=== PATIENT | female | born 1985 | race Caucasian/White ===

== ENCOUNTER 2021-07-12 14:48 | Outpatient (REF) | payer OTHER, SELFPAY | END 2021-07-12 14:49 | disposition home or self-care (01) | LOC: HO.LAB 14:48 | PROVIDERS: PCP Nurse Practitioner Family; Visit Provider Internal Medicine | DX: Z20.822 Contact with and (suspected) exposure to COVID-19 (principal) | CPT/HCPCS: C9803; U0003; U0005 ==

== ENCOUNTER 2024-06-15 10:48 | Outpatient (AMB) | payer OTHER, SELFPAY ==
--- NOTE | 2024-06-15 10:51 | A.OFFPC_ITS ---
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 Required: No Allergies No Known Allergies Allergy (Verified 06/15/24 11:18) Medication List - Last Reconciled 06/15/24 by Nataliya Wise, ASSESSMENT COORDINATOR- levonorgestrel (Liletta) intrauterine Tobacco use date assessed: 06/15/24 Dental Screening Dental Screen Date: 06/15/24 Did you have a dental visit in the last 12 months?: Yes Did you have a dental problem in the last 6 months where you did not have access to dental care?: No Was dental information given to patient?: Patient has dentist HPI HPI Comments History of Present Illness Details 38 y/o F with no significant medical his tory, family hx of colon ca Social: dtr 6, son 4, , 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 No family hx of skin cancer Here today to [facility] & for complete physical exam. 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 She also reports that she has been very healthy overall. Optho no glasses Skin- no issues Due for pap, has IUD, due to be changed 2015 The only complaint is that of shooting pain on the left side of her hip and leg that started about 3-4 months ago. It was intermittent in nature. It was te nder to the touch at times. The pain stops above the level of the knee and only occurs on the lateral aspect. She has no new injury. She does report a history of surgery 10 years ago to repair a torn labrum. She takes Tylenol and Advil which helps. Plan Flu vaccine administered today Routine screening labs today Mildly tachycardic. Advised to monitor heart rate at home. If consistently abo ve 100, advised to let me know so that I can further investigate. However exam today was benign and reassuring. We will schedule for her to have a clinical breast exam and Pap smear here in the office In regards to the left hip, advised to follow up with the surgeon for further evaluation and treatment. Otherwise return to office in 1 year for complete physical exam, sooner as needed [facility] Medical History (Updated 06/15/24 @ 11:46 by Nataliya Wise, [facility]) No pertinent past medical history Surgical History (Updated 06/15/24 @ 11:41 by Luz Maria Licona MA) History of hip surgery Previous section Family History (Updated 06/15/24 @ 11:41 by Luz Maria Licona MA) Maternal Grandfather Colon cancer Social History (Updated 06/15/24 @ 10:58 by Luz Maria Licona MA) Household Members: Spouse and Children Both parents involved: No Caregiver staying overnight: Yes Housing: House Are you a primary director of managed care to a significant other at home: Yes Do you presently have visiting nurse or other home services: No 75 years or older and lives alone: No Alcohol intake: current Alcohol intake frequency: a few times a month Patient Tobacco Use Status: Never used Tobacco e-Cigarette/Vaping Use: Never Used Second Hand Smoke Exposure: No service: No Current occupational status: employed 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 1. Little interest or pleasure in doing things: not at all 2. Feeling down, depressed, or hopeless: not at all 3. Trouble falling or staying asleep, or sleeping too much: not at all 4. Feeling tired or having little energy: not at all 5. Poor appetite or overeating: not at all 6. Feeling bad about yourself - or that you are a failure or have let yourself or your family down: not at all 7. Trouble concentrating on things, such as reading the newspaper or watching television: not at all 8. Moving or speaking so slowly that other people could have noticed. Or the opposite - being so fidgety or restless that you have been moving around a lot more than usual: not at all 9. Thoughts that you would be better off or of hurting yourself in some way: not at all Total score: 0 Depression Screening Interpretation: Negative Depression Screening Done: Yes 76508 - PHQ-9 Billing: Yes Source: Developed by Drs. Bryce Baxter, Angelita Castellon, Augusto Ramirez and colleagues, with an educational qiana from [employer]. Thrive Questionnaire Date Thrive assessed: 06/15/24 I am a: Patient What is your living situation today?: I have a steady place to live Within the past 12 months, did the food you bought not last and you didn't have the money to get more?: Never true Within the past 12 months, did you worry whether your food would run out before you got money to buy more?: Never true Do you have trouble paying for medicines?: No Do you have trouble getting transportation to medical appointments?: No Do you have trouble paying your heating and electricity bill?: No Do you have trouble taking care of your child, family member or friend?: No Do you have trouble with day-to-day activities such as bathing, preparing meals, shopping, managing finances, etc.?: No Are you currently unemployed and looking for a job?: No Are you interested in more education?: No Please select the resources that you would like help with: None Currently or been in a relationship where the following occur: No concerns reported THRIVE Score: 0 AUDIT C Alcohol Use Questionnaire (AUDIT-C) 1. How often do you have a drink containing alcohol?: 2-4 times a month 2. How many drinks containing alcohol do you have on a typical day when you are drinking?: 1 or 2 3. How often do you have six or more drinks on one occasion?: Never Total Score: 2 Score Reviewed/Action Taken: Yes NADEEN-7 AMB Questionnaire NADEEN-7 Date NADEEN - 7 assessed: 06/15/24 Feeling nervous, anxious, or on edge: 0 = Not at all Not being able to stop or control worryin = Not at all Worrying too much about different things: 0 = Not at all Trouble relaxin = Not at all Being so restless that it is hard to sit still: 0 = Not at all Becoming easily annoyed or irritable: 0 = Not at all Feeling afraid as if something awful might happen: 0 = Not at all Total NADEEN-7 score (0-4 normal; 5-9 mild; 10-14 moderate; 15-21 severe): 0 Source: Developed by Drs. Bryce Baxter, Angelita Castellon, Augusto Ramirez and colleagues, with an educational qiana from [employer]. NADEEN-7 Assessment Billing NADEEN-7 Assessment Tool: NADEEN-7 Assessment 62567 Review of Systems Const Details: Constitutional: Denies fever. Skin: Denies rash. Eye: Denies eye pain. ENMT: Denies sore throat and nasal congestion. Respiratory: Denies shortness of breath and cough. Gastrointestinal: Denies nausea, vomiting or abdominal pain. Cardiovascular: Denies chest pain and syncope. Genitourinary: Denies dysuria. Musculoskeletal: Denies back pain Neurologic: Denies headaches, confusion, and weakness. Psychiatric: Denies suicidal thoughts and substance abuse. Allergy/ Immunologic: Denies impaired immunity. Physical exam (Primary Care) Vital Signs: Last Vital Signs Pulse 99 06/15/24 11:47 Resp 13 06/15/24 10:56 BP 128/72 06/15/24 10:56 Pulse Ox 98 06/15/24 10:56 Oxygen Delivery Method Room Air 06/15/24 10:56 BMI result Body Mass Index 27.7 Tobacco/Smoking Status: Tobacco use Status Tobacco use date assessed 06/15/24 06/15/24 10:59 Patient Tobacco Use Status Never used Tobacco 06/15/24 10:59 e-Cigarette/Vaping Use Never Used 06/15/24 10:59 PHQ-9: PHQ-9 Score PHQ-9: Total score 0 06/15/24 11:25 Depression Screening Interpretation: Negative Thrive Assessment: Date of Thrive Assessment Date Thrive assessed 06/15/24 06/15/24 10:59 Currently or been in a relationship where the following occur: No concerns reported Const Other: General: Well developed, well nourished, in no acute distress. Appears stated age. Head: Normocephalic, atraumatic. Eyes: Pupils are equal, round and reactive to light and accommodation. Conjunctivae are clear. Vision grossly normal. Ears: TMs clear AU, EACS WNL Nose: Patent, without discharge. Mouth: There are no ulcers or lesions noted. No inflammation, no post nasal drip, no plaques nor exudates. Neck: Supple, no adenopathy or thyromegaly. Lungs: Clear to auscultation bilaterally. No rales, rhonchi or wheeze noted. Good air flow in all dean. Heart: Regular rate and rhythm. No murmurs, click, rubs or gallops are noted. Abdomen: Bowel sounds present in all quadrants. The abdomen is soft, nontender, with no masses or organomegaly noted. No hernias are noted. Musculoskeletal: Joints are nontender, without swelling, redness, or effusions. Range of motion is observed to be normal. Unable to replicate the pain in her left hip today. Overall exam of the hip and leg grossly normal. Pulses: Peripheral pulses are equal and palpable bilaterally. Extremities: No clubbing, cyanosis nor edema is noted. Neurologic: Gait and station normal. Cranial Nerves 2-12 intact. Motor strength grossly symmetrical and intact. No sensory loss. Balance normal. Skin: No rashes, ulcers, or lesions noted. Turgor is good. Skin color is good. Hair and nails are without abnormalities. Psych: Normal eye contact, affect and mood appropriate, and normal inter actions. Patient is alert and appropriate to context. Office Procedures Flu Questionnaire Does the patient have a severe egg allergy?: No Does the patient have severe life threatening allergies?: No Does the patient have a fever or illness today?: No Has the patient ever had Guillain-Gibsonburg Syndrome?: No Has the patient ever had any past reaction to a flu shot?: No Immunizations Fluarix Triv [id number] (PF) 45 mcg (15 mcg x 3)/0.5 mL IM syringe Performing Provider: ANCA Jimenez Performing Location: [facility] Administered by: Melisa Moon RN on 06/15/24 11:10 Dose Route Admin Location Dispensed Lot Number Expiration Date [facility] Fertilizer Applicator 0.5 mL IM Left Deltoid 0.5 mL [id number] 02/06/25 [id number] [employer] VIS Given Date VIS Provided VIS Publication Date 06/15/24 Single Vaccine 21 Eligibility Eligibility Date Funding Source Not [facility] Eligible 06/15/24 Private Coding Level of Care Code New Pt Prev Care 18-39yr(10768 Diagnoses Encounter for general adult medical examination without abnormal findings Z00.00 Laboratory exam ordered as part of routine general medical examination Z00.00 Left hip pain M25.552 Family history of colon cancer Z80.0 Additional Codes NADEEN-7 Assessment Billing - NADEEN-7 Assessment Tool: NADEEN-7 Assessment 33007 ([id number]) PHQ-9 - 72947 - PHQ-9 Billing: Yes ([id number]) Assessment & Plan Assessment & Plan (1) Encounter for general adult medical examination without abnormal findings: Code(s): Z00.00 - Encounter for general adult medical examination without abnormal findings Plan: . (2) Laboratory exam ordered as part of routine general medical examination: Code(s): Z00.00 - Encounter for general adult medical examination without abnormal findings Category: Medical Plan: . (3) Left hip pain: Code(s): M25.552 - Pain in left hip Category: Medical Plan: .. (4) Family history of colon cancer: Comment: maternal grandfather age > 50 Code(s): Z80.0 - Family history of malignant neoplasm of digestive organs Category: Medical Plan: . Orders: Orders Influenza [id number] Immunization 06/15/24 Z23 - Encounter for immunization Comprehensive Met. Panel 06/15/24 Z. - Encounter for general adult medical examination without abnormal findings Hemoglobin A1c 06/15/24 Z00.00 - Encounter for general adult medical examination without abnormal findings Lipid Panel 06/15/24 Z. - Encounter for general adult medical examination w ithout abnormal findings Microalbumin, Random (w Creat) 06/15/24 Z00.00 - Encounter for general adult medical examination without abnormal findings TSH reflex Free T4 06/15/24 Z00.00 - Encounter for general adult medical examination without abnormal findings Patient Instructions: Health screenings for women You should visit your health care provider from time to time, even if you are healthy. The purpose of these visits is to: Screen for medical issues Assess your risk for future medical problems Encourage a healthy lifestyle Update vaccinations and other preventive care services Help you get to know your provider in case of an illness Information Even if you feel fine, you should still see your provider for regular checkups. These visits can help you avoid problems in the future. For example, the only way to find out if you have high blood pressure is to have it checked regularly. High blood sugar and high cholesterol levels also may not have any symptoms in the early stages. A simple blood test can check for these conditions. There are specific times when you should see your provider or receive specific health screenings. The [place] Preventive Services Task Force publishes a list of recommended screenings. Below are screening guidelines for women ages 18 to 39. BLOOD PRESSURE SCREENING Your blood pressure should be checked at least once every 3 to 5 years if: Your blood pressure is in the normal range (top number less than 120 mm Hg and bottom number less than 80 mm Hg) You don't have risk factors for high blood pressure Ask your provider if you need your blood pressure checked more often if: The top number is 120 to 129 mm Hg or the bottom number is 70 to 79 mm Hg You have diabetes, heart disease, kidney problems, are overweight, or have certain other health conditions You have a first-degree relative with high blood pressure You are Black You had high blood pressure during a If the top number is 130 mm Hg or greater or the bottom number is 80 mm Hg or greater, this is considered stage 1 hypertension. Schedule an appointment with your provider to learn how you can reduce your blood pressure. Watch for blood pressure screenings in your area. Ask your provider if you can stop in to have your blood pressure checked. BREAST CANCER SCREENING Experts do not agree about the benefits of breast self-exams in finding breast cancer or saving lives. Talk to your provider about what is best for you. A screening mammogram is not recommended for most women under age 40. Your provider may discuss and recommend mammograms, MRI scans, or ultrasounds if you have an increased risk for breast cancer, such as: A mother or sister who had breast cancer at a young age (most often starting screening earlier than the age the close relative was diagnosed) You carry a high-risk genetic marker CERVICAL CANCER SCREENING Cervical cancer screening should start at age 21 years unless your provider advises otherwise. After the first test: Women ages 21 through 29 should have a Pap test every 3 years. Exoprts do not agree on whether HPV testing is recommended for this age group. Women ages 30 through 65 should be screened with either a Pap test every 3 years or the HPV test every 5 years or both tests every 5 years (called cotesting ). Women who have been treated for precancer (cervical dysplasia) should continue to have Pap tests for 20 years after treatment or until age 65, whichever is longer. If you have had your uterus and cervix removed (total hysterectomy), and you have not been diagnosed with cervical cancer or precancer (high grade cervical neoplasia), you do not need cervical cancer screening. CHOLESTEROL SCREENING Cholesterol screening should begin at: Age 45 for women with no known risk factors for coronary heart disease Age 20 for women with known risk factors for coronary heart disease Repeat cholesterol screening should take place: Every 5 years for women with normal cholesterol levels More often if changes occur in lifestyle (including weight gain and diet) More often if you have diabetes, heart disease, kidney problems, or certain other conditions DIABETES SCREENING You should be screened for diabetes starting at age 35 and then repeated every 3 years if you have no risk factors for diabetes. Screening may need to start earlier and be repeated more often if you have other risk factors for diabetes, such as: You have a first degree relative with diabetes. You are overweight or have obesity. You have high blood pressure, prediabetes, or a history of heart disease. Screening for diabetes should be done if you are planning to become and you are overweight and have other risk factors such as high blood pressure. DENTAL EXAM Go to the dentist once or twice every year for an exam and cleaning. Your dentist will evaluate if you need more frequent visits. EYE EXAM Have an eye exam every 5 to 10 years before age 40. If you have vision problems, have an eye exam every 2 years or more often if recommended by your provider. You should have an eye exam that includes an examination of your retina (back of your eye) at least every year if you have diabetes. IMMUNIZATIONS Commonly needed vaccines include: Flu shot: get one every year. COVID-19 vaccine: ask your provider what is best for you. Tetanus-diphtheria and acellular pertussis (Tdap) vaccine: have one at or after age 19 as one of your tetanus-diphtheria vaccines if you did not receive it as an adolescent. Tetanus-diphtheria: have a booster (or Tdap) every 10 years. Varicella vaccine: receive 2 doses if you never had chickenpox or the varicella vaccine. Hepatitis B vaccine: receive 2, 3, or 4 doses, depending on your exact circumstances. Measles, mumps, and rubella (MMR) vaccine: receive 1 to 2 doses if you are not already immune to MMR. Your provider can tell you if you are immune. Ask your provider about the human papillomavirus (HPV) vaccine if: You have not received the HPV vaccine in the past You have not completed the full vaccine series (you should catch up on this shot) Ask your provider if you should receive other immunizations if you have certain health problems that increase your risk for some diseases such as pneumonia. INFECTIOUS DISEASE SCREENING Women who are sexually active should be screened for chlamydia and gonorrhea up until age 25. Women 25 years and older should be screened for chlamydia and gonorrhea if at high risk. Screening for hepatitis C: All adults ages 18 to 79 should get a one-time test for hepatitis C. people should be screened at every . Screening for human immunodeficiency virus (HIV): All people ages 15 to 65 should get a one-time test for HIV. Depending on your lifestyle and medical history, you may also need to be screened for infections such as syphilis and HIV, as well as other infections. PHYSICAL EXAM All adults should visit their provider from time to time, even if they are healthy. The purpose of these visits is to: Screen for disease Assess your risk of future medical problems Encourage a healthy lifestyle Update your vaccinations and other preventive care services Maintain a relationship with a provider in case of an illness Your height, weight, and BMI should be checked at every exam. During your exam, your provider may ask you about: Depression and anxiety Diet and exercise Alcohol and tobacco use Safety issues, such as using seat belts, smoke detectors, and intimate partner violence Your medicines and risk for interactions SKIN SELF-EXAM Your provider may check your skin for signs of skin cancer, especially if you're at high risk, such as if you: Have had skin cancer before Have close relatives with skin cancer Have a weakened immune system OTHER SCREENING Talk with your provider about colon cancer screening if you have a strong family history of colon cancer or polyps, or if you have had inflammatory bowel disease or polyps yourself. Routine bone density screening of women under 40 is not recommended. Walk-In Care (Urgent Care): We Make it Easy Walk-in for urgent medical issues such as: ? Seasonal Allergies ? Insect Bites ? Cough ? Diarrhea ? Acute Asthma Attacks ? Back, Knee or Joint Pain ? Ear Infection ? Fever without a Rash ? Headaches ? Nausea ? Gwynn Eye, Rash or Skin Irritation ? Sore Throat ? Sports Physicals ? Vomiting Most insurances are accepted. Patients do not need to be part of the [facility] to seek care at the walk-in clinic. Locations [address] [facility] , [place] [address] ? [phone] [facility] Walk-In Care in [place] provides services to ages 18 and over. Open Thursday-Thursday: 8 a.m. to 5 p.m. and Thursday: 9 a.m. to 3 p.m.* *Hours may vary due to staffing availability. To confirm Walk-In Care hours in [place], please call [phone]. [address] [place] [address] ? [phone] [facility] Walk-In Care in [place] provides services to ages 12 and over. Open Thursday-Thursday: 8 a.m. to 5 p.m. Hours may vary due to staffing availability. To confirm Walk-In Care hours in [place], please call [phone]. LABORATORY SERVICES: [facility] Lab ? Primary Location [address] [place] [address] Thursday through Thursday 6:00 AM ? 5:00 PM Thursday 7:00 AM ? 11:00 AM* [phone] The [facility] Lab is centrally located near the front entrance of the [facility] for easy outpatient access. Convenient parking is provided for outpatients. *Hours may vary due to staffing availability. To confirm Laboratory hours for any location, please call [phone]. Offsite Location For your convenience, we offer offsite laboratory draw stations at the following locations: [address] [place] [address] ? [address], [address] [place] [address] Thursday through Thursday 7:30 AM ? 1:00 PM* [phone] *Hours may vary due to staffing availability. To confirm Laboratory hours for any location, please call [phone]. [place] ? [address] Thursday through Thursday 6:00 AM ? 3:30 PM* Thursday 6:30 AM ? 3 PM* [phone] *Hours may vary due to staffing availability. To confirm Laboratory hours for any location, please call [phone]. [address] [facility] Thursday through Thursday 7:30 AM ? 4:00 PM* [phone] *Hours may vary due to staffing availability. To confirm Laboratory hours for any location, please call [phone]. [address] [facility] Thursday through 9:00 AM ? 4:00 PM* *Hours may vary due to staffing availability. To confirm Laboratory hours for any location, please call [phone]. Appointments are not necessary. Walk-ins are welcome. Like all the departments throughout the [facility], our Lab undergoes frequent reviews to ensure the quality and accuracy of test results, and our staff takes special pride in its status as a nationally accredited facility. Patient Portal: ONE PATIENT. ONE RECORD. BETTER CARE. [facility] has a fully integrated, cutting- edge mobile electronic health information system that has revolutionized the way we care for our patients and manage our organization. This system improves communication and coordination enabling us to provide safe, higher-quality care, and an overall positive experience for staff and patients. Our first priority, as always, is to deliver the highest quality care possible. The system is running in the background supporting that priority. This portal is for all [facility] and [facility] services and practices. If you are experiencing any technical difficulties with enrolling or logging into the Patient Portal please complete the [facility] Patient Portal Technical Support Form. [facility] and [facility] now offers a new secure on-line interactive tool for patients to review their health information ? ?Patient Portal. This interactive web portal will enable patients and their families to take an active role in their care by providing easy, secure access to their health information via the internet. The Patient Portal provides patients with instant access to their health information, including laboratory results, medications, allergies, demographic information, visit history, and more. In addition to managing their own care, parents and health care proxies with authorized consent will appreciate the ability to access the records of those individuals for whom they provide care. Please note: if you wish to gain access (Proxy) to another patient?s portal, you will be required to come to the Medical Records Department in person at [facility]. Both the patient giving proxy access and the proxy will need to provide photo identification and complete the appropriate authorization. The Patient Portal also allows track their appointments online. The [facility] Patient Portal also saves patients time by allowing them to submit updates to their demographic and contact information prior to their visits. Portal email notifications will also alert patients to any new activity on their portal, such as test results and new appointments. In order to initially enroll in the [facility] Patient Portal, you will need to enter some required information including the following: * your [facility] Medical Record number * your personal home email address * name * date of Please note: In order to enroll in the [facility] Patient Portal, we need to have your email address on file in your electronic medical record. ?The email address needs to be specific for one person (yourself) in order for your Portal enrollment to be successful. ?You can update your email address in person with our Registration staff when you are registering for a hospital visit. ?Otherwise, you will need to come to the Health Information Management (Medical Records) Department at [facility]. ?We are open from Thursday ? Thursday from 7:30 a.m. ? 4:30 p.m. ?You will be required to present a photo id. Once you have successfully enrolled in the Patient Portal, you will receive a one-time user id and password for the Portal, sent to your email address. ?This will allow you to log into the Patient Portal within 99 hrs and reset your own logon id and password, and define personal security questions. ?Once your permanent login and password have been set, you can log into the [facility] Patient Portal at any time via the blue button above or from the Portal Logon button on any page of the [facility] website. [facility] and [facility] encourage all of our patients to enroll in Patient Portal as it presents a valuable opportunity for patients and their families to actively participate in their care and stay healthy Welcome to [facility]. ?We look forward to working with you.
[2024-06-15 10:56] VITALS: BP 128/72; PULSE 106; RESP 13; O2SAT 98; BMI 27.7
[2024-06-15 11:47] VITALS: PULSE 99
== END 2024-06-15 11:41 | disposition home or self-care (01) ==
LOC: HO.HMCFM 10:49
PROVIDERS: PCP Nurse Practitioner Family; Visit Provider Nurse Practitioner Family
DX: Z00.00 Encounter for general adult medical examination without abnormal findings (principal); M25.552 Pain in left hip; Z80.0 Family history of malignant neoplasm of digestive organs

== ENCOUNTER → 2024-06-15 10:48 | Outpatient (BNVA) | payer OTHER, SELFPAY | PROVIDERS: PCP Nurse Practitioner Family; Visit Provider Nurse Practitioner Family | DX: Z00.01 Encounter for general adult medical examination with abnormal findings (principal); Z23 Encounter for immunization; M25.552 Pain in left hip; Z80.0 Family history of malignant neoplasm of digestive organs | CPT/HCPCS: 90471; 90656; 96127 ==

== ENCOUNTER 2024-06-22 12:23 | Outpatient (REF) | payer OTHER, SELFPAY | END 2024-06-22 12:24 | disposition home or self-care (01) | LOC: HO.LNP 12:23 | PROVIDERS: PCP Nurse Practitioner Family; Visit Provider Nurse Practitioner Family | DX: Z12.4 Encounter for screening for malignant neoplasm of cervix (principal) | CPT/HCPCS: 88175 ==

== ENCOUNTER 2024-06-22 12:23 | Outpatient (AMB) | payer OTHER, SELFPAY ==
--- NOTE | 2024-06-22 12:27 | A.OFFPC_ITS ---
Vital Signs 06/22/24 12:33 Height 5 ft 8 in Weight 182 lb 2 oz BMI 27.7 BP 112/70 Blood Pressure Location Rt brachial Position Sitting Respiration 16 Pulse 89 Pulse Source Pulse Oximeter Temp 98.3 F Temp Source Oral Pulse Oximetry (%) 99 Oxygen Delivery Method Room Air Intake Visit Reasons: schedule 30 min pap/CBE Intake Note: patient her for PAP Safekeeping Clerk Required: No Is last menstrual period known: Yes Last menstrual period: 06/08/24 Post menopausal: No Patient : No Allergies No Known Allergies Allergy (Verified 06/22/24 12:41) Medication List - Last Reconciled 06/22/24 by Nataliya Wise, COLLAR BASTER- levonorgestrel (Liletta) intrauterine Tobacco use date assessed: 06/22/24 Dental Screening Dental Screen Date: 06/22/24 Did you have a dental visit in the last 12 months?: Yes Did you have a dental problem in the last 6 months where you did not have access to dental care?: No Was dental information given to patient?: Patient has dentist HPI HPI Comments History of Present Illness Details 38 y/o F with no significant medical his tory, family hx of colon ca Social: dtr 6, son 4, , 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 No family hx of skin cancer Here today for routine Pap smear and clinical breast exam Last menstrual period was 2 weeks ago Last Pap smear 4 years ago Plan Routine Pap plus HPV reflex obtained today. Future screenings based on current guidelines. Advised to do self-breast exams once per month. Education provided today. This note is constructed using voice recognition software. While every effort has been made to ensure accuracy in data analysis assistant, still errors may have been included Sometimes, these errors may affect the content or meaning of the given sentence . Total time spent caring for the patient today was 30 minutes. This includes time spent before the visit reviewing the chart, time spent during the visit, and time spent after the visit on documentation [facility] Medical History (Updated 06/22/24 @ 12:39 by ANGELICA Jimenez) No pertinent past medical history Surgical History (Updated 06/15/24 @ 11:41 by Luz Maria Licona MA) History of hip surgery Previous section Family History (Updated 06/15/24 @ 11:41 by Luz Maria Licona MA) Maternal Grandfather Colon cancer Social History (Updated 06/15/24 @ 10:58 by Luz Maria Licona MA) Household Members: Spouse and Children Both parents involved: No Caregiver staying overnight: Yes Housing: House Are you a primary campground caretaker to a significant other at home: Yes Do you presently have visiting nurse or other home services: No 75 years or older and lives alone: No Alcohol intake: current Alcohol intake frequency: a few times a month Patient Tobacco Use Status: Never used Tobacco e-Cigarette/Vaping Use: Never Used Second Hand Smoke Exposure: No Patient : No service: No Current occupational status: employed 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 Current occupational exposures/hazards: No Cognitive needs: No Hearing needs: No Vision needs: No Female Reproductive History Menstrual Date of last menstrual period: 06/08/24 Questionnaire Thrive Questionnaire Date Thrive assessed: 06/13/24 I am a: Patient What is your living situation today?: I have a steady place to live Within the past 12 months, did the food you bought not last and you didn't have the money to get more?: Never true Within the past 12 months, did you worry whether your food would run out before you got money to buy more?: Often true Do you have trouble paying for medicines?: No Do you have trouble getting transportation to medical appointments?: No Do you have trouble paying your heating and electricity bill?: No Do you have trouble taking care of your child, family member or friend?: No Do you have trouble with day-to-day activities such as bathing, preparing meals, shopping, managing finances, etc.?: No Are you currently unemployed and looking for a job?: No Are you interested in more education?: No Please select the resources that you would like help with: None Currently or been in a relationship where the following occur: No concerns reported THRIVE Score: 1 AUDIT C Alcohol Use Questionnaire (AUDIT-C) 1. How often do you have a drink containing alcohol?: 2-4 times a month 2. How many drinks containing alcohol do you have on a typical day when you are drinking?: 1 or 2 3. How often do you have six or more drinks on one occasion?: Never Total Score: 2 Score Reviewed/Action Taken: Yes NADEEN-7 AMB Questionnaire NADEEN-7 Date NADEEN - 7 assessed: 06/15/24 Source: Developed by Drs. Bryce Baxter, Angelita Castellon, Augusto Ramirez and colleagues, with an educational qiana from [employer]. Physical exam (Primary Care) Vital Signs: Last Vital Signs Temp 98.3 F 06/22/24 12:33 Pulse 89 06/22/24 12:33 Resp 16 06/22/24 12:33 BP 112/70 06/22/24 12:33 Pulse Ox 99 06/22/24 12:33 Oxygen Delivery Method Room Air 06/22/24 12:33 BMI result Body Mass Index 27.7 Tobacco/Smoking Status: Tobacco use Status Tobacco use date assessed 06/22/24 06/22/24 12:37 Patient Tobacco Use Status Never used Tobacco 06/22/24 12:29 e-Cigarette/Vaping Use Never Used 06/22/24 12:29 Thrive Assessment: Date of Thrive Assessment Date Thrive assessed 06/13/24 06/22/24 12:29 Currently or been in a relationship where the following occur: No concerns reported Chest Chest palpation & inspection: normal inspection of the chest Breast/axilla inspection: normal inspection of the breasts and normal inspection of the axillae Breast/axilla palpation: normal palpation of the breasts, normal palpation of the axillae and no axillary lymphadenopathy General: Yes Bimanual renal exam normal bilaterally, Yes bladder normal to inspection and Yes bladder normal to palpation External Female Exam: normal external appearance and normal appearance of the urethra Speculum Exam - Vagina: normal appearance of the vagina, normal palpation and normal vaginal discharge Speculum Exam - Cervix: normal appearance of the cervix, normal palpation and Cervical os open (STRINGS OF IUD PRESENT) Bimanual exam- vagina & uterus: normal bimanual exam, normal palpation, bladder normal to palpation, normal palpation and uterine mobility normal Bimanual Exam- Adnexa, other: normal adnexae, no masses and normal OB/external & speculum: external exam normal and Cervical os open (STRINGS OF IUD PRESENT) Coding Level of Care Code Est Pt Level 4 (43919) Complex EM visit Add On G2211 Diagnoses Encounter for breast self examination education Z71.89 Screening breast examination Z12.39 Screening for cervical cancer Z12.4 Assessment & Plan Assessment & Plan (1) Encounter for breast self examination education: Code(s): Z71.89 - Other specified counseling Category: Medical Plan: . (2) Screening breast examination: Code(s): Z12.39 - Encounter for other screening for malignant neoplasm of breast Category: Medical Plan: . (3) Screening for cervical cancer: Code(s): Z12.4 - Encounter for screening for malignant neoplasm of cervix Category: Medical Plan: . Plan . Orders: Orders Pap Smear Today Z12.4 - Encounter for screening for malignant neoplasm of cervix
[2024-06-22 12:33] VITALS: BP 112/70; PULSE 89; RESP 16; TEMP 36.8; O2SAT 99; BMI 27.7
== END 2024-06-22 13:05 | disposition home or self-care (01) ==
PROVIDERS: PCP Nurse Practitioner Family; Visit Provider Nurse Practitioner Family
DX: Z12.4 Encounter for screening for malignant neoplasm of cervix (principal); Z12.39 Encounter for other screening for malignant neoplasm of breast

== ENCOUNTER 2024-06-22 13:08 | Outpatient (REF) | payer OTHER, SELFPAY ==
[2024-06-22 14:38] LABS: Estimated Average Glucose 105 mg/dL; Hemoglobin A1C 118.2101 umol/L; Hemoglobin A1c % 5.3 % (<6.0)
[2024-06-22 14:55] LABS: Creatinine Urine 33.13 mg/dL; Microalbumin Urine < 5.0 mg/L
[2024-06-22 15:11] LABS: Alanine Aminotransferase 20 U/L (0-31); Alkaline Phosphatase 49 U/L (39-117); Anion Gap 10 (12-20); Aspartate Amino Transferase 19 U/L (5-31); Bilirubin Total 0.7 mg/dL (0.0-1.0); Blood Urea Nitrogen 11 mg/dL (9-16); Calcium 9.6 mg/dL (8.4-10.2); Carbon Dioxide 26 mmol/L (22-29); Chloride 106 mmol/L (96-108); Cholesterol 168 mg/dL (<200); Estimated Glomerular Filt Rate > 60; Glucose Random 83 mg/dL (60-115); HDL Cholesterol 52 mg/dL (>40); LDL Cholesterol Calculated 102 mg/dL (<100); Potassium 3.3 mmol/L (3.3-5.1); Sodium 139 mmol/L (135-145); Total Protein 7.1 g/dL (6.5-8.0); Triglycerides 74 mg/dL (<150)
== END 2024-06-22 13:09 | disposition home or self-care (01) ==
LOC: HO.WFDLDS 13:08
PROVIDERS: Visit Provider Nurse Practitioner Family
DX: Z00.00 Encounter for general adult medical examination without abnormal findings (principal); Z13.1 Encounter for screening for diabetes mellitus
CPT/HCPCS: 36415; 80053; 80061; 82570; 83036; 84443

== ENCOUNTER 2025-06-22 11:54 | Outpatient (AMB) | payer OTHER, SELFPAY ==
--- NOTE | 2025-06-22 11:56 | A.OFFPC_ITS ---
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 Required: No Allergies No Known Allergies Allergy (Verified 06/22/25 11:56) Medication List - Last Reconciled 06/22/25 by VIVIANA Jimenez- levonorgestrel (Liletta) intrauterine Tobacco use date assessed: 06/22/25 Dental Screening Dental Screen Date: 06/22/25 Did you have a dental visit in the last 12 months?: Yes Did you have a dental problem in the last 6 months where you did not have access to dental care?: No Was dental information given to patient?: Patient has dentist HPI HPI Comments History of Present Illness Details 39 y/o F with no significant medical his tory, family hx of colon ca Social: 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 No family hx of skin cancer History of Present Illness The patient is a 39-year-old female presenting for a complete physical exam. Left hip pain: - The patient reports persistent, non-de bilitating left hip pain following a surgery on the same hip years ago. - She states the hip is not 100% recover ed but does not interfere with daily activities. - She uses Tylenol or ibuprofen as neede d for the pain, but not on a daily basis. Tachycardia: - An elevated heart rate was noted ronnie g her initial physical exam last year, though she was asymptomatic. - Her heart rate was normal at a subsequ ent visit for a pap smear, and she denies any current symptoms or alarms from her watch. Contraceptive management: - The patient has a Liletta IUD, which s he believes was inserted a few months after her son was born, likely in early 2020. - She is unsure of its expiration and pl ans to contact the placing provider to determine if it is a 5-year or 8-year device. - The IUD was placed for preve ntion, not for heavy periods. Health Maintenance: - Her tetanus shot (Tdap) was in 2018 an d is up to date. - She received an influenza vaccine last month @ work - Her Pap smear was performed last year and is not due for another two years. - Lab work from last year, including tony betes screen, cholesterol, and thyroid, was normal. - As she is turning 40, she has agreed t o begin mammogram screenings. Past Surgical History - Left hip surgery - Liletta Intrauterine device (IUD) plac ement circa 2020 Family History - Maternal grandfather was diagnosed wit h colon cancer at age 75. - No family history of breast cancer. Social History - Employment: Works in [employer] for [employer]. - Family status: She has a 7-year-old da rikki and a son who will be 5 next month. - Child development: Her daughter experi enced separation anxiety at the start of school, which has improved with virtual therapy. - Denies anxiety or depression. Health Maintenance - Up-to-date on Tdap immunization, last received in 2017. - Received influenza vaccine last month. - Pap smear was completed last year and is due every three years. - Will initiate first mammogram screenin g after her 40th birthday in August. - Agreed to updated screening labs for d iabetes, cholesterol, and thyroid function this year. - Uses a Liletta IUD for contraception a nd will follow up with her PRINCIPAL CLERK provider to confirm its expiration date. Review of Systems - Constitutional: Reports being generall y healthy over the last year. - Cardiovascular: Denies chest pain or s ymptoms of elevated heart rate. - Respiratory: Denies shortness of breat h. - Gastrointestinal: Reports normal bowel and bladder function. Reports a resolved episode of vomiting/diarrhea for 3 days last September. - Musculoskeletal: Reports intermittent, non-debilitating pain in the left hip. - Psychiatric: Denies anxiety and depres frank. Physical Exam General: Well developed, well nourished, in no acute distress. Appears stated age. Head: Normocephalic, atraumatic. Eyes: Pupils are equal, round and reactive to light and accommodation. Conjunctivae are clear. Scleras nonicteric bilat. Vision grossly normal. Ears: TMs clear AU, EACS WNL Nose: Patent, without discharge. Neck: No carotid bruit bilat. Supple, no adenopathy or thyromegaly. Breast: Edu on SBE Lungs: Clear to auscultation bilaterally. No rales, rhonchi or wheeze noted. Good air flow in all dean. Heart: Regular rate and rhythm. No murmurs, click, rubs or gallops are noted. Blood pressure is 105/69, pulse is 69. Abdomen: Bowel sounds present in all quadrants. The abdomen is soft, nontender, with no masses or organomegaly noted. No hernias are noted. : Deferred. Reviewed recommendations for routine PRINCIPAL CLERK. Patient has an IUD, no problems reported. Pulses: Peripheral pulses are equal and palpable bilaterally. Extremities: No clubbing, cyanosis nor edema is noted. Neurologic: Gait and station normal. Cranial Nerves 2-12 intact. Motor strength grossly symmetrical and intact. No sensory loss. Balance normal. Skin: No rashes, ulcers, or lesions noted. Turgor is good. Skin color is good. Hair and nails are without abnormalities. Psych: Normal eye contact, affect and mood appropriate, and normal interactions. Patient is alert and appropriate to context. No anxiety or depression noted on screenings. Results - Labs from June 22, 2023: Normal CM P, LDL 102, normal TSH, and a negative urine microalbumin/creatinine ratio. - Pap smear (from last year): Normal. Medical Decision Making The patient is a 39-year-old female presenting for her annual complete physical exam. She is in good health overall. Her chronic left hip pain post-surgery is stable and non-debilitating, managed as needed with OTC analgesics, requiring no further workup at this time. The previously noted elevated heart rate has resolved. The primary focus of today's visit is on preventative health maintenance. Given her upcoming 40th birthday, we discussed initiating mammogram screening, and a mutual decision was made to begin at age 40. Routine screening labs will be updated. Regarding her Clemente IUD, she will follow up with her PRINCIPAL CLERK provider to confirm its expiration, and I will offer assistance if she encounters difficulties scheduling an appointment, given the current climate for [employer] access. She remains up to date on her Pap smears and immunizations. Plan 1. Encounter For Annual Adult Health Exa mination - An order for screening labs, including a diabetes screen, cholesterol, and thyroid panel, will be placed. - Plan to follow up in one year for her next annual physical, or as needed in between. 2. Left Hip Pain - The patient's chronic pain is stable a nd does not impact her daily activities. - She will continue to manage the pain w ith Tylenol or ibuprofen as needed. 3. Contraceptive Management - The patient will contact the provider who placed her Liletta IUD to confirm its expiration date. - Advised her to let me know if she has any issues scheduling a follow-up with a PRINCIPAL CLERK provider for IUD management. 4. Screening For Malignant Neoplasm Of B reast - After discussing the varying guideline s, a mutual decision was made for the patient to begin mammogram screening at age 40. - An order for a mammogram will be place d with a start date in August, after her 40th birthday. - The order will be valid for one year a nd includes authorization for any necessary follow-up imaging. 5. Family History Of Malignant Neoplasm Of Colon - Given her maternal grandfather's histo ry of colon cancer at age 75, the patient should follow standard screening guidelines. Patient Instructions - An order for screening lab work has be en placed for you. - An order for a screening mammogram roe l be active starting in August. [facility] will call you to schedule it at your convenience. - Contact the clinic where you had your IUD inserted to find out when it needs to be replaced. Please let us know if you have trouble getting an appointment. - Continue to use Tylenol or ibuprofen a s needed for your hip pain. - Plan to return in one year for your ne xt physical exam, or call us sooner if you have any new issues or concerns. Consent The benefits and alternatives of mammogram screening were discussed with the patient. It was explained that screening guidelines vary, with recommendations to begin between ages 40 and 45 for women at average risk. The patient acknowledged this information and expressed a desire to proceed with her first screening mammogram at age 40 to establish a baseline. Verbal consent for the procedure was obtained. Patient was informed and verbally consented to the use of an ambient scribe for clinic note documentation during this visit. [facility] Medical History (Updated 06/22/25 @ 12:22 by Nataliya Wise [facility]) No pertinent past medical history Surgical History (Updated 06/15/24 @ 11:41 by Luz Maria Licona MA) History of hip surgery Previous section Family History (Updated 06/15/24 @ 11:41 by Luz Maria Licona MA) Maternal Grandfather Colon cancer Social History (Updated 06/15/24 @ 10:58 by Luz Maria Licona MA) Household Members: Spouse and Children Both parents involved: No Caregiver staying overnight: Yes Housing: House Are you a primary direct support professional caregiver to a significant other at home: Yes Do you presently have visiting nurse or other home services: No 75 years or older and lives alone: No Alcohol intake: current Alcohol intake frequency: a few times a month Patient Tobacco Use Status: Never used Tobacco e-Cigarette/Vaping Use: Never Used Second Hand Smoke Exposure: No service: No Current occupational status: employed 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 1. Little interest or pleasure in doing things: not at all 2. Feeling down, depressed, or hopeless: not at all 3. Trouble falling or staying asleep, or sleeping too much: not at all 4. Feeling tired or having little energy: not at all 5. Poor appetite or overeating: not at all 6. Feeling bad about yourself - or that you are a failure or have let yourself or your family down: not at all 7. Trouble concentrating on things, such as reading the newspaper or watching television: not at all 8. Moving or speaking so slowly that other people could have noticed. Or the opposite - being so fidgety or restless that you have been moving around a lot more than usual: not at all 9. Thoughts that you would be better off or of hurting yourself in some way: not at all Total score: 0 Depression Screening Interpretation: Negative Depression Screening Done: Yes 29376 - PHQ-9 Billing: Yes Source: Developed by Drs. Bryce Baxter, Angelita Castellon, Augusto Ramirez and colleagues, with an educational qiana from [employer]. Thrive Questionnaire Date Thrive assessed: 06/22/25 I am a: Patient What is your living situation today?: I have a steady place to live Within the past 12 months, did the food you bought not last and you didn't have the money to get more?: Never true Within the past 12 months, did you worry whether your food would run out before you got money to buy more?: Never true Do you have trouble paying for medicines?: No Do you have trouble getting transportation to medical appointments?: No Do you have trouble paying your heating and electricity bill?: No Do you have trouble taking care of your child, family member or friend?: No Do you have trouble with day-to-day activities such as bathing, preparing meals, shopping, managing finances, etc.?: No Are you currently unemployed and looking for a job?: No Are you interested in more education?: No Please select the resources that you would like help with: None Currently or been in a relationship where the following occur: No concerns reported THRIVE Score: 0 AUDIT C Alcohol Use Questionnaire (AUDIT-C) 1. How often do you have a drink containing alcohol?: 2-4 times a month 2. How many drinks containing alcohol do you have on a typical day when you are drinking?: 1 or 2 3. How often do you have six or more drinks on one occasion?: Never Total Score: 2 Score Reviewed/Action Taken: Yes NADEEN-7 AMB Questionnaire NADEEN-7 Date NADEEN - 7 assessed: 06/22/25 Feeling nervous, anxious, or on edge: 0 = Not at all Not being able to stop or control worryin = Not at all Worrying too much about different things: 0 = Not at all Trouble relaxin = Not at all Being so restless that it is hard to sit still: 0 = Not at all Becoming easily annoyed or irritable: 0 = Not at all Feeling afraid as if something awful might happen: 0 = Not at all Total NADEEN-7 score (0-4 normal; 5-9 mild; 10-14 moderate; 15-21 severe): 0 Source: Developed by Drs. Bryce Baxter, Angelita Castellon, Augusto Ramirez and colleagues, with an educational qiana from [employer]. NADEEN-7 Assessment Billing NADEEN-7 Assessment Tool: NADEEN-7 Assessment 72145 Physical exam (Primary Care) Vital Signs: Last Vital Signs Temp 97.6 F 06/22/25 11:58 Pulse 69 06/22/25 11:58 Resp 12 06/22/25 11:58 BP 105/69 06/22/25 11:58 Pulse Ox 98 06/22/25 11:58 Oxygen Delivery Method Room Air 06/22/25 11:58 BMI result Body Mass Index 30.6 Tobacco/Smoking Status: Tobacco use Status Tobacco use date assessed 06/22/25 06/22/25 12:00 Patient Tobacco Use Status Never used Tobacco 06/22/25 12:00 e-Cigarette/Vaping Use Never Used 06/22/25 12:00 PHQ-9: PHQ-9 Score PHQ-9: Total score 0 06/22/25 12:00 Depression Screening Interpretation: Negative Thrive Assessment: Date of Thrive Assessment Date Thrive assessed 06/22/25 06/22/25 12:00 Currently or been in a relationship where the following occur: No concerns reported Coding Level of Care Code Est Pt Prev Care 18-39y(75232) Diagnoses Adult general medical exam Z00.00 History of Papanicolaou smear of cervix Z92.89 Family history of colon cancer Z80.0 Laboratory exam ordered as part of routine general medical examination Z00.00 IUD (intrauterine device) in place Z97.5 Encounter for screening mammogram for malignant neoplasm of breast Z12.31 Breast cancer screening modality: mammogram Additional Codes NADEEN-7 Assessment Billing - NADEEN-7 Assessment Tool: NADEEN-7 Assessment [id number] ([id number]) PHQ-9 - 81496 - PHQ-9 Billing: Yes ([id number]) Assessment & Plan Assessment & Plan (1) Adult general medical exam: Onset Date: ~06/22/25 Code(s): Z00.00 - Encounter for general adult medical examination without abnormal findings Category: Medical (2) History of Papanicolaou smear of cervix: Onset Date: ~06/2024 Code(s): Z92.89 - Personal history of other medical treatment Category: Medical (3) Family history of colon cancer: Comment: maternal grandfather age > 50 Code(s): Z80.0 - Family history of malignant neoplasm of digestive organs Category: Medical (4) Laboratory exam ordered as part of routine general medical examination: Code(s): Z00.00 - Encounter for general adult medical examination without abnormal findings Category: Medical (5) IUD (intrauterine device) in place: Onset Date: 2020 Code(s): Z97.5 - Presence of (intrauterine) contraceptive device Category: Social Hx (6) Screening for breast cancer: Code(s): Z12.39 - Encounter for other screening for malignant neoplasm of breast Category: Medical Qualifiers: Breast cancer screening modality: mammogram Qualified Code(s): Z12.31 - Encounter for screening mammogram for malignant neoplasm of breast Plan . Orders: Orders Complete Blood Count no Diff Today Z00.00 - Encounter for general adult medical examination without abnormal findings Hemoglobin A1c Today Z00.00 - Encounter for general adult medical examination without abnormal findings Lipid Panel Today Z00.00 - Encounter for general adult medical examination without abnormal findings MM tomosynthesis screening BI 08/10/25 Z12.31 - Encounter for screening mammogram for malignant neoplasm of breast Comprehensive Met. Panel Today Z00.00 - Encounter for general adult medical examination without abnormal findings Microalbumin, Random (w Creat) Today Z00.00 - Encounter for general adult medical examination without abnormal findings TSH reflex Free T4 Today Z00.00 - Encounter for general adult medical examination without abnormal findings Vitamin B12 and Folate Today Z00.00 - Encounter for general adult medical examination without abnormal findings Vitamin D 25-OH Total Today Z00.00 - Encounter for general adult medical examination without abnormal findings Patient Instructions: Health screenings for women You should visit your health care provider from time to time, even if you are healthy. The purpose of these visits is to: Screen for medical issues Assess your risk for future medical problems Encourage a healthy lifestyle Update vaccinations and other preventive care services Help you get to know your provider in case of an illness Information Even if you feel fine, you should still see your provider for regular checkups. These visits can help you avoid problems in the future. For example, the only way to find out if you have high blood pressure is to have it checked regularly. High blood sugar and high cholesterol levels also may not have any symptoms in the early stages. A simple blood test can check for these conditions. There are specific times when you should see your provider or receive specific health screenings. The [place] Preventive Services Task Force publishes a list of recommended screenings. Below are screening guidelines for women ages 18 to 39. BLOOD PRESSURE SCREENING Your blood pressure should be checked at least once every 3 to 5 years if: Your blood pressure is in the normal range (top number less than 120 mm Hg and bottom number less than 80 mm Hg) You don't have risk factors for high blood pressure Ask your provider if you need your blood pressure checked more often if: The top number is 120 to 129 mm Hg or the bottom number is 70 to 79 mm Hg You have diabetes, heart disease, kidney problems, are overweight, or have certain other health conditions You have a first-degree relative with high blood pressure You are Black You had high blood pressure during a If the top number is 130 mm Hg or greater or the bottom number is 80 mm Hg or greater, this is considered stage 1 hypertension. Schedule an appointment with your provider to learn how you can reduce your blood pressure. Watch for blood pressure screenings in your area. Ask your provider if you can stop in to have your blood pressure checked. BREAST CANCER SCREENING Experts do not agree about the benefits of breast self-exams in finding breast cancer or saving lives. Talk to your provider about what is best for you. A screening mammogram is not recommended for most women under age 40. Your provider may discuss and recommend mammograms, MRI scans, or ultrasounds if you have an increased risk for breast cancer, such as: A mother or sister who had breast cancer at a young age (most often starting screening earlier than the age the close relative was diagnosed) You carry a high-risk genetic marker CERVICAL CANCER SCREENING Cervical cancer screening should start at age 21 years unless your provider advises otherwise. After the first test: Women ages 21 through 29 should have a Pap test every 3 years. Exoprts do not agree on whether HPV testing is recommended for this age group. Women ages 30 through 65 should be screened with either a Pap test every 3 years or the HPV test every 5 years or both tests every 5 years (called cotesting ). Women who have been treated for precancer (cervical dysplasia) should continue to have Pap tests for 20 years after treatment or until age 65, whichever is longer. If you have had your uterus and cervix removed (total hysterectomy), and you have not been diagnosed with cervical cancer or precancer (high grade cervical neoplasia), you do not need cervical cancer screening. CHOLESTEROL SCREENING Cholesterol screening should begin at: Age 45 for women with no known risk factors for coronary heart disease Age 20 for women with known risk factors for coronary heart disease Repeat cholesterol screening should take place: Every 5 years for women with normal cholesterol levels More often if changes occur in lifestyle (including weight gain and diet) More often if you have diabetes, heart disease, kidney problems, or certain other conditions DIABETES SCREENING You should be screened for diabetes starting at age 35 and then repeated every 3 years if you have no risk factors for diabetes. Screening may need to start earlier and be repeated more often if you have other risk factors for diabetes, such as: You have a first degree relative with diabetes. You are overweight or have obesity. You have high blood pressure, prediabetes, or a history of heart disease. Screening for diabetes should be done if you are planning to become and you are overweight and have other risk factors such as high blood pressure. DENTAL EXAM Go to the dentist once or twice every year for an exam and cleaning. Your dentist will evaluate if you need more frequent visits. EYE EXAM Have an eye exam every 5 to 10 years before age 40. If you have vision problems, have an eye exam every 2 years or more often if recommended by your provider. You should have an eye exam that includes an examination of your retina (back of your eye) at least every year if you have diabetes. IMMUNIZATIONS Commonly needed vaccines include: Flu shot: get one every year. COVID-19 vaccine: ask your provider what is best for you. Tetanus-diphtheria and acellular pertussis (Tdap) vaccine: have one at or after age 19 as one of your tetanus-diphtheria vaccines if you did not receive it as an adolescent. Tetanus-diphtheria: have a booster (or Tdap) every 10 years. Varicella vaccine: receive 2 doses if you never had chickenpox or the varicella vaccine. Hepatitis B vaccine: receive 2, 3, or 4 doses, depending on your exact circumstances. Measles, mumps, and rubella (MMR) vaccine: receive 1 to 2 doses if you are not already immune to MMR. Your provider can tell you if you are immune. Ask your provider about the human papillomavirus (HPV) vaccine if: You have not received the HPV vaccine in the past You have not completed the full vaccine series (you should catch up on this shot) Ask your provider if you should receive other immunizations if you have certain health problems that increase your risk for some diseases such as pneumonia. INFECTIOUS DISEASE SCREENING Women who are sexually active should be screened for chlamydia and gonorrhea up until age 25. Women 25 years and older should be screened for chlamydia and gonorrhea if at high risk. Screening for hepatitis C: All adults ages 18 to 79 should get a one-time test for hepatitis C. people should be screened at every . Screening for human immunodeficiency virus (HIV): All people ages 15 to 65 should get a one-time test for HIV. Depending on your lifestyle and medical history, you may also need to be screened for infections such as syphilis and HIV, as well as other infections. PHYSICAL EXAM All adults should visit their provider from time to time, even if they are healthy. The purpose of these visits is to: Screen for disease Assess your risk of future medical problems Encourage a healthy lifestyle Update your vaccinations and other preventive care services Maintain a relationship with a provider in case of an illness Your height, weight, and BMI should be checked at every exam. During your exam, your provider may ask you about: Depression and anxiety Diet and exercise Alcohol and tobacco use Safety issues, such as using seat belts, smoke detectors, and intimate partner violence Your medicines and risk for interactions SKIN SELF-EXAM Your provider may check your skin for signs of skin cancer, especially if you're at high risk, such as if you: Have had skin cancer before Have close relatives with skin cancer Have a weakened immune system OTHER SCREENING Talk with your provider about colon cancer screening if you have a strong family history of colon cancer or polyps, or if you have had inflammatory bowel disease or polyps yourself. Routine bone density screening of women under 40 is not recommended.
[2025-06-22 11:58] VITALS: BP 105/69; PULSE 69; RESP 12; TEMP 36.4; O2SAT 98; BMI 30.6
--- OUTSIDE RECORDS SUMMARY | 2025-06-22 15:05 | XMS_ITS | Clinical Summary ---
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 Not on janak e 12/05/2022 Are you concerned about learning? Not on file 12/05/2022 No 12/05/2022 No 12/05/2022 Digital Access Answer Date Recorded No 01/02/2023 No 01/02/2023 Reliable internet access at home? Not on file 01/02/2023 Device with a working camera? Not on file Comments Unknown Sex and Gender Information Value Date Recorded Sex Assigned at Not on file Legal Sex Female 9:14 PM EDT Gender Identity Not on file Sexual Orientation Not on file Last Filed Vital Signs Vital Sign Reading Time Taken Comments Blood Pressure 127/84 03/29/2014 9:41 AM EDT Pulse 74 03/29/2014 9:41 AM EDT Temperature - - Respiratory Rate - - Oxygen Saturation - - Inhaled Oxygen Concentration - - Weight 102.1 kg (225 lb) 09/10/2020 9:45 AM EST Height 173.4 cm (5' 8.25 ) 09/10/2020 9:45 AM ES T Body Mass Index 33.96 09/10/2020 9:45 AM EST Plan of Treatment Health Maintenance Due Date Last Done Comments DEPRESSION SCREENING 1997 HEPATITIS C SCREENING 2003 HIV ONE-TIME SCREENING (18-6 5 YEARS) 2003 PAP SMEAR 2006 INFLUENZA VACCINE (#1) 2025 05/14/2018 COVID-19 VACCINE (2 - 2024-2 6 season) 2025 11/09/2020 Adult Td,Tdap Booster 04/30/2028 04/30/2018 SMOKING STATUS SCREENING (On ce After 26 Yrs) Completed 09/10/2020 HEPATITIS A VACCINES Aged Out No long er eligible based on patient's age to complete this topic HIB VACCINES Aged Out No longer eligi ble based on patient's age to complete this topic IPV VACCINES Aged Out No longer eligi ble based on patient's age to complete this topic MENINGOCOCCAL VACCINES (ACWY) Aged Out No longer eligible based on patient's age to complete this topic MENINGOCOCCAL VACCINES (B) Aged Out N o longer eligible based on patient's age to complete this topic PNEUMOCOCCAL VACCINES (0-49 years) Aged Out No longer eligible based on patient's age to complete this topic Medical Devices Not on file Insurance CIGNA PPO CIGNA PPO CIGNA PPO CIGNA PPO CIGNA PPO CIGNA PPO CIGNA PPO CIGNA PPO CIGNA PPO Care Teams 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 It is not the complete legal health record.[facility]
== END 2025-06-22 12:20 | disposition home or self-care (01) ==
LOC: HO.HMCFM 11:55
PROVIDERS: PCP Nurse Practitioner Family; Visit Provider Nurse Practitioner Family
DX: Z00.00 Encounter for general adult medical examination without abnormal findings (principal); Z92.89 Personal history of other medical treatment; Z80.0 Family history of malignant neoplasm of digestive organs; Z97.5 Presence of (intrauterine) contraceptive device; Z12.31 Encounter for screening mammogram for malignant neoplasm of breast

== ENCOUNTER → 2025-06-22 11:54 | Outpatient (BNVA) | payer OTHER, SELFPAY | PROVIDERS: PCP Nurse Practitioner Family; Visit Provider Nurse Practitioner Family | DX: Z00.00 Encounter for general adult medical examination without abnormal findings (principal); M25.552 Pain in left hip; R00.0 Tachycardia, unspecified; Z92.89 Personal history of other medical treatment; Z80.0 Family history of malignant neoplasm of digestive organs; Z97.5 Presence of (intrauterine) contraceptive device | CPT/HCPCS: 96127 ==